=== PATIENT | female | born 1980 | race Caucasian/White ===

== ENCOUNTER 2017-12-03 08:00 | Emergency (ER) | payer BC ==
[2017-12-03 08:13] VITALS: BP 157/91
--- NOTE | 2017-12-03 08:39 | ED Physician Documentation ---
PD HPI HEENT - Stated complaint Stated Complaint: EAR PX - Chief complaint Chief Complaint: Heent - History obtained from History obtained from: Patient, Family - History of Present Illness Timing - onset: How many weeks ago (4) Timing - duration: Weeks (4) Timing - details: Gradual onset, Still present Location: Right ear, Other (right eye) Improves: Nothing Associated symptoms: Congestion, Swollen nodes. No: Fever, Rhinorrhea, Cough Similar symptoms before: Has not had sx before Recently seen: Clinic - Additional information Additional information: 37-year-old female has had some pain in her right ear for the past month. She has had some drainage from the ear and she has had some irritation to the right eye that is come and gone and is present now. She has persistence of the symptoms and she is come in for evaluation. She was seen when this initially occurred and had her ear examined was told at that time it looked like she had some allergies. Patient denies any history of diabetes she does get up to go to the bathroom once to twice per night and that has not changed. She has not had much in the way of a cough. Review of Systems Constitutional: denies: Fever Eyes: reports: Irritation. denies: Decreased vision Ears: reports: Ear pain, Drainage/discharge. denies: Loss of hearing Nose: reports: Congestion. denies: Rhinorrhea / runny nose Throat: denies: Sore throat Cardiac: denies: Chest pain / pressure Respiratory: denies: Dyspnea, Cough PD PAST MEDICAL HISTORY - Present Medications Home Medications: Ambulatory Orders Medication Instructions Recorded Confirmed Neomycin/Poly/Dex Ophth Drops 1 drops RIGHTEYE QID #1 bottle 12/03/17 [Maxitrol Ophth Drops] Neomycin/Polymyx/Hc Otic Drops 4 drops RIGHTEAR TID #1 bottle 12/03/17 [Cortisporin Ear Susp] - Allergies Allergies/Adverse Reactions: Allergies Allergy/AdvReac Type Severity Reaction Status Date / Time amoxicillin Allergy Unknown Verified 12/03/17 08:10 lisinopril Allergy Unknown Verified 12/03/17 08:10 morphine Allergy Unknown Verified 12/03/17 08:09 PD ED PE NORMAL - Vitals Vital signs reviewed: Yes (hypertensive ) - General General: Alert and oriented X 3, No acute distress, Well developed/nourished - HEENT HEENT: Atraumatic, PERRL, EOMI, Pharynx benign, Other (The right ear canal is erythematous with white drainage. There is pain to pull on the tragus or push on the alistair. There does not appear to be inflamation of the TM but the entire TM is not visible .The right eye has injection and no drainage. ) - Neck Neck: Supple, no meningeal sign, No bony TTP - Cardiac Cardiac: RRR, No murmur - Respiratory Respiratory: No respiratory distress, Clear bilaterally - Derm Derm: Normal color, Warm and dry, No rash - Extremities Extremities: No deformity, No edema - Neuro Neuro: Alert and oriented X 3, No motor deficit, No sensory deficit, Normal speech Eye Opening: Spontaneous Motor: Obeys Commands Verbal: Oriented GCS Score: 15 - Psych Psych: Normal mood, Normal affect Results - Vitals Vitals: Vital Signs - 24 hr 12/03/17 08:11 Temperature 36.0 C L Heart Rate 68 Respiratory 16 Rate Blood Pressure 157/91 H O2 Saturation 100 Oxygen O2 Source Room air PD MEDICAL DECISION MAKING - ED course Complexity details: considered differential, d/w patient ED course: 37-year-old female with a month long ear pain appears to have otitis externa she also has appears to have some conjunctivitis. [facility] [place] [facility] and we will treat her for otitis externa and conjunctivitis topically and she will follow up with her primary when she returns home. Her fingerstick blood glucose is checked as well. - Sepsis Event Vital Signs: Vital Signs - 24 hr 12/03/17 08:11 Temperature 36.0 C L Heart Rate 68 Respiratory 16 Rate Blood Pressure 157/91 H O2 Saturation 100 Oxygen O2 Source Room air Departure - Departure Disposition: 01 Home, Self Care Clinical Impression: Otitis externa Qualifiers: Otitis externa type: unspecified type Chronicity: acute Laterality: right Qualified Code(s): H60.501 - Unspecified acute noninfective otitis externa, right ear Conjunctivitis Qualifiers: Conjunctivitis type: acute Acute conjunctivitis type: unspecified Laterality: right Qualified Code(s): H10.31 - Unspecified acute conjunctivitis, right eye Condition: Stable Instructions: ED Otitis Externa, ED Conjunctivitis Nonspecific Follow-Up: Your, doctor [Other] Prescriptions: Neomycin/Poly/Dex Ophth Drops [Maxitrol Ophth Drops] 1 drops RIGHTEYE QID #1 bottle Neomycin/Polymyx/Hc Otic Drops [Cortisporin Ear Susp] 4 drops RIGHTEAR TID #1 bottle
== END 2017-12-03 09:07 | disposition home or self-care (01) ==
LOC: ED 08:00
DX: H60.501 Unspecified acute noninfective otitis externa, right ear (principal); H10.31 Unspecified acute conjunctivitis, right eye; I10 Essential (primary) hypertension
CPT/HCPCS: 99283